=== PATIENT | male | born 1980 | race Two or more races ===

== ENCOUNTER 2024-03-21 21:45 | Emergency (ER) | payer MEDICAID, SELFPAY ==
[2024-03-21 21:45] VITALS: BMI 29.0
[2024-03-21 22:55] VITALS: BP 146/85; PULSE 89; RESP 17; TEMP 37.1; O2SAT 100
[2024-03-21] MEDS: IBUPROFEN TAB 400 MG TABLET 800 MG PO (23:20)
[2024-03-21] MEDS: METOCLOPRAMIDE 5 MG TABLET 10 MG PO (23:20)
--- NOTE | 2024-03-21 23:26 | EDNOTE_ITS ---
<Statement entered by Noelle Goldstein MD - 03/22/24 21:13> As co-signing physician, I was present and available for consult prn. I concur with the plan and care as documented by the midlevel provider. Upper Respiratory Inf. RME/HPI General Chief Complaint: Flu Like Symptoms Stated Complaint: FLU LIKE SYMPTOMS Time Seen by Provider: 03/21/24 23:10 Arrival date/time: 03/21/24 21:45 44M with no significant PMH presents to ED with 2 days of cough, ARENAS, sore throat, and body aches. Limitations: no limitations Related Data Previous Rx's ?Medication ?Instructions ?Recorded bacitracin 500 unit/gram topical 1 applic topical TID #144 ea 02/18/22 packet oxycodone-acetaminophen 10 mg-325 1 tab PO TID PRN pain #15 tabs 02/18/22 mg tablet (Percocet) ciprofloxacin HCl 500 mg tablet 500 mg PO BID #14 tabs 06/08/22 (Cipro) dicyclomine 10 mg capsule 10 mg PO BID #14 caps 06/08/22 metronidazole 500 mg tablet 500 mg PO BID #14 tabs 06/08/22 Allergies Allergy/AdvReac Type Severity Reaction Status Date / Time No Known Allergies Allergy Verified 03/21/24 21:47 Review of Systems Review of Systems Systems Reviewed: All systems reviewed, normal except as documented Constitutional Constitutional: Reports system reviewed and no additional complaints, except as documented, Reports as per HPI, Reports body ache(s), Denies fever(s) and Reports headache(s) ENT Ears, Nose, Mouth, and Throat: Reports as per HPI, Denies disequilibrium, Reports headache(s) and Reports sore throat Cardiovascular Cardiovascular: Reports system reviewed and no additional complaints, except as documented, Denies chest pain and Denies dyspnea Respiratory Respiratory: Reports system reviewed and no additional complaints, except as documented, Reports as per HPI, Reports cough and Denies dyspnea Gastrointestinal Gastrointestinal: Reports system reviewed and no additional complaints, except as documented, Denies abdominal pain, Denies nausea and Denies vomiting Neurologic Neurologic: Reports system reviewed and no additional complaints, except as documented, Denies confusion, Denies disequilibrium and Reports headache(s) Psychiatric Psychiatric: Denies confusion Past Medical History Social History SMOKING STATUS: Never smoker ED Exam General Limitations: Present no limitations General appearance: Present alert and in no apparent distress Head Head exam: Present atraumatic Eye Eye exam: Present normal appearance, PERRL and EOMI ENT ENT exam: Present mucous membranes moist Expanded ENT Exam Throat exam: Present tonsillar erythema and tonsillomegaly; Absent tonsillar exudate, R peritonsillar mass, L peritonsillar mass or muffled voice Neck Neck exam: Present normal inspection, full ROM and trachea midline Chest Chest inspection: Present normal inspection and symmetric chest wall rise Respiratory Respiratory exam: Present normal lung sounds bilaterally Cardiovascular Cardiovascular exam: Present regular rate, normal rhythm and normal heart sounds Abdominal Exam Abdominal exam: Present soft and normal bowel sounds Extremities Exam Extremities exam: Present normal inspection and full ROM Back Exam Back exam: Present normal inspection and full ROM Neurological Exam Neurological exam: Present alert, oriented X3 and CN II-XII intact Psychiatric Psychiatric exam: Present normal affect and normal mood Skin Skin exam: Present warm, dry, intact and normal color Course Quality Measures none Orders Category Date Time Status Bedside COVID-19 Antigen Test NOW Care 03/21/24 23:13 Active Bedside Influenza A&B Antigen Test NOW Care 03/21/24 23:13 Active Strep A Rapid Stat Lab 03/21/24 23:11 Ordered Ibuprofen Tab [Motrin Tab] Med 03/21/24 23:14 Discontinued 800 mg PO X1 ONE Metoclopramide [Reglan] Med 03/21/24 23:14 Discontinued 10 mg PO X1 ONE Vital Signs Vital signs: Vital Signs Temperature 98.7 F 03/21/24 22:55 Pulse Rate 89 03/21/24 22:55 Respiratory Rate 17 03/21/24 22:55 Blood Pressure 146/85 H 03/21/24 22:55 Pulse Oximetry (%) 100 03/21/24 22:55 Oxygen Delivery Method Room Air 03/21/24 22:55 O2 at 100% on RA and WNLs Upper Respiratory Infection MDM Narrative MDM Narrative:: 44M with no significant PMH presents to ED with 2 days of cough, ARENAS, sore throat, and body aches. Physical exam reveals nasal congestion, but clear lungs. Red and swollen oropharynx. Normal pupil response and EOM. No neck tenderness. ROM intact. Patient is afebrile, calm, and alert. Swabs neg. Patient refused strep swab. Patient data External records reviewed:: [facility] previous records Clinical information provided by:: patient Social determinants that could affect healthcare access:: none Patient has the following chronic illnesses:: none How is presenting disease/condition affected by chronic disease/condition?: no chronic disease Evaluation data The following diagnostics were reviewed and interpreted by me:: lab results Lab and/or radiology exams considered but not ordered:: ordered Interpretation Summary: above Medications / Prescriptions Medications or Prescriptions considered but not ordered:: ordered Medication administrations:: Medication Administration History Discontinued Medications Ibuprofen (Ibuprofen Tab 400 Mg Tablet) 800 mg PO X1 ONE Stop: 03/21/24 23:15 Last Admin: 03/21/24 23:20 Dose: 800 mg Documented By: OA Metoclopramide HCl (Metoclopramide 5 Mg Tablet) 10 mg PO X1 ONE Stop: 03/21/24 23:15 Last Admin: 03/21/24 23:20 Dose: 10 mg Documented By: MARLEEN above Consultations Consultation(s) initiated? (list below): No Diagnosis Upper Respiratory Differential Diagnosis: upper respiratory infection, croup, otitis media, sinusitis, viral infection, bronchitis, influenza and pharyngitis Most likely diagnosis given after review of the tests above:: URI Admission Indicated Admission indicated?: not indicated Admission Request Was there a request for admission?: No Disposition Plan Disposition Plan: Discharge Discharge Attestation Discharge Attestation: The patient and all family members were given an opportunity to ask questions and understood the discharge instructions. Discharge instructions specifically effects, indications for sooner follow up or return to the emergency department, and the expected course of current diagnosis. Patient condition: Stable Discharge Plan Plan Patient Disposition: HOME (Self Care) Disposition Comment: Stable Prescriptions/Referrals Prescriptions/Med Rec: No Action ciprofloxacin HCl [Cipro] 500 mg tablet 500 mg PO BID Qty: 14 0RF metronidazole 500 mg tablet 500 mg PO BID Qty: 14 0RF dicyclomine 10 mg capsule 10 mg PO BID Qty: 14 0RF bacitracin 500 unit/gram packet 1 applic topical TID Qty: 144 0RF oxycodone-acetaminophen [Percocet] 10-325 mg tablet 1 tab PO TID MDD 4 g APAP PRN (Reason: pain) Qty: 15 0RF Problem List Clinical Impression: Upper respiratory infection Patient/Caregiver Discharge Instructions Additional Instructions: Please follow-up with PCP within 24-48 hours and return immediately if symptoms worsen. Ibuprofen/Tylenol can be used simultaneously for greater fever/pain control. Jayl is good for cough, congestion, and sleep. Patient is negative for flu and COVID. Print Language: Indonesian Stand Alone Forms: Patient Portal Info Letter PA/ELEVATED MOTORMAN Supervising Physician PA/ELEVATED MOTORMAN Supervising Physician: Dr. Padilla
== END 2024-03-21 23:37 | disposition home or self-care (01) ==
LOC: SERX 03-22 00:52
PROVIDERS: Emergency Provider Emergency Medicine
DX: J06.9 Acute upper respiratory infection, unspecified (principal)
CPT/HCPCS: 87400; 87651; 87811; 99283; A9270

== ENCOUNTER 2025-01-25 00:50 | Emergency (ER) | payer MEDICAID, SELFPAY ==
[2025-01-25 00:51] VITALS: BMI 30.9
[2025-01-25 01:19] VITALS: BP 186/94; PULSE 91; RESP 18; TEMP 36.8; O2SAT 97
--- NOTE | 2025-01-25 01:34 | XR_ITS ---
EXAMINATION: Ultrasound venous Doppler left lower extremity Date and time: 2024, 0230 hours INDICATIONS: Left lower extremity swelling and pain today TECHNIQUE AND FINDINGS: Multiple sonographic Doppler images left lower extremity deep venous system including common femoral superficial femoral popliteal peroneal posterior tibial veins as well as superficial greater saphenous vein Venous system is patent, compressible with augmentation IMPRESSION: Negative for deep vein thrombosis
--- NOTE | 2025-01-25 01:34 | XR_ITS ---
EXAMINATION: Left lower extremity 2 views TECHNIQUE: AP lateral left tibia-fibula 2 views Date and time: January 25, 2025, 0135 hours INDICATIONS: Lower leg swelling and pain beginning yesterday no trauma FINDINGS: Adequate bone density. No fracture or dislocation. No cortical bone destruction or foreign body IMPRESSION: Negative for osseous abnormality
--- NOTE | 2025-01-25 01:35 | PD.EDRME ---
Rapid Medical Screening Exam RME Arrival date/time: 01/25/25 00:50 45-year-old male reports with complaints of sudden onset of redness pain and swelling left lower extremity that began today Chief Complaint: Extremity Problem,Nontraumatic Time Seen by Provider: 01/25/25 01:13 Vital signs: Vital Signs Temperature 98.2 F 01/25/25 01:19 Pulse Rate 91 01/25/25 01:19 Respiratory Rate 18 01/25/25 01:19 Blood Pressure 186/94 H 01/25/25 01:19 Pulse Oximetry (%) 97 01/25/25 01:19 Oxygen Delivery Method Room Air 01/25/25 01:19
[2025-01-25 04:20] VITALS: BP 165/95; PULSE 81; RESP 20; TEMP 36.7; O2SAT 99
--- NOTE | 2025-01-25 04:23 | PRELIM_ITS ---
Left lower extremity venous Doppler ultrasound with wave Doppler spectral analysis. January 25, 2025 at 0239 hours Clinical history: Swelling, redness and pain. Technique: Duplex scan of the left lower extremity deep venous systems was performed utilizing 2D grayscale imaging, Doppler spectral analysis and color flow Doppler and with compression. Comparison: None available at the time of this report. Findings: Monet scale, color flow and spectral Doppler evaluation of the left lower extremity deep veins was performed. The common femoral, superficial femoral and popliteal veins are patent and compressible. Normal respiratory variation is noted. There is no evidence of occlusive or nonocclusive thrombus. The great saphenous vein is patent and compressible at the level of the saphenofemoral junction. Impression: No sonographic evidence of deep venous thrombosis in the left lower extremity. Report Electronically Signed By: Sreekanth Hines 01/25/2025 4:22:48 AM [EST]
--- NOTE | 2025-01-25 05:07 | PD.EDEXREM ---
ED Extremity Problem RME/HPI General Chief complaint: Extremity Problem,Nontraumatic Stated complaint: LEFT PULLIAM SWELLING Time Seen by Provider: 01/25/25 01:13 Arrival date/time: 01/25/25 00:50 RME / HPI RME / HPI Narrative: 01/25/25 00:50 45-year-old male reports with complaints of sudden onset of redness pain and swelling left lower extremity that began today Dr. Michaels?s Main ED Evaluation: 45yo male with no significant past medical history presents to the ED for complaints of LLE redness, pain, and swelling x 1 day. No recent falls or injuries. Denies any fever, chills, cough, chest pain, shortness of breath, or any other associated symptoms. Patient is not taking any daily medications. NKA. Related Data Previous Rx's ?Medication ?Instructions ?Recorded bacitracin 500 unit/gram topical 1 applic topical TID #144 ea 02/18/22 packet oxycodone-acetaminophen 10 mg-325 1 tab PO TID PRN pain #15 tabs 02/18/22 mg tablet (Percocet) ciprofloxacin HCl 500 mg tablet 500 mg PO BID #14 tabs 06/08/22 (Cipro) dicyclomine 10 mg capsule 10 mg PO BID #14 caps 06/08/22 metronidazole 500 mg tablet 500 mg PO BID #14 tabs 06/08/22 cephalexin 500 mg capsule 500 mg PO TID #21 caps 01/25/25 Allergies Allergy/AdvReac Type Severity Reaction Status Date / Time No Known Allergies Allergy Verified 01/25/25 00:51 Review of Systems Review of Systems Systems Reviewed: All systems reviewed, normal except as documented Past Medical History Social History SMOKING STATUS: Current every day smoker ED Exam Narrative Physical exam: Generally patient is alert in no obvious distress, heart regular rate and rhythm, lungs clear to auscultation equal bilaterally, abdomen soft bowel sounds present also nontender, extremities show very mild erythema and warmth to the anterior pulliam region. No open wounds noted. No swelling to either lower extremity. Course Quality Measures none Orders Category Date Time Status US venous doppler LE LT Stat Exams 01/25/25 01:34 Taken XR tibia fibula LT 2V Stat Exams 01/25/25 01:34 Taken Vital Signs Vital signs: Vital Signs Temperature 98.2 F 01/25/25 01:19 Pulse Rate 91 01/25/25 01:19 Respiratory Rate 18 01/25/25 01:19 Blood Pressure 186/94 H 01/25/25 01:19 Pulse Oximetry (%) 97 01/25/25 01:19 Oxygen Delivery Method Room Air 01/25/25 01:19 Extremity Problem MDM Narrative MDM Narrative:: Scribe Attestation: 01/25/25 - Nimco Dorsey am scribing for and in the presence of Dr. Michaels. Doppler ultrasound to the left lower extremity showed no DVT. X-rays of the tibia and fibula were normal. Patient may have the beginnings of a very early cellulitis. Cephalexin as prescribed. Follow-up with his doctor. Return to ER as needed or if condition worsens. Elevate left leg is much as possible. Patient data External records reviewed:: [facility] previous records (Per chart review, patient was seen here on 03/21/24 for URI.) Clinical information provided by:: patient Social determinants that could affect healthcare access:: none Patient has the following chronic illnesses:: none How is presenting disease/condition affected by chronic disease/condition?: no chronic disease Evaluation data The following diagnostics were reviewed and interpreted by me:: radiology exam(s) Lab and/or radiology exams considered but not ordered:: none Interpretation Summary: Telerad Preliminary Report Draft Patient: GUERRERO APODACA Record#: [id number] Birthdate: 1980 Age/Sex: 45 / M Location: [facility] Attending Dr: Ordering Physician: Date of Service: Procedure(s): Accession Number(s): cc: ~ Left lower extremity venous Doppler ultrasound with wave Doppler spectral analysis. January 25, 2025 at 0239 hours Clinical history: Swelling, redness and pain. Technique: Duplex scan of the left lower extremity deep venous systems was performed utilizing 2D grayscale imaging, Doppler spectral analysis and color flow Doppler and with compression. Comparison: None available at the time of this report. Findings: Monet scale, color flow and spectral Doppler evaluation of the left lower extremity deep veins was performed. The common femoral, superficial femoral and popliteal veins are patent and compressible. Normal respiratory variation is noted. There is no evidence of occlusive or nonocclusive thrombus. The great saphenous vein is patent and compressible at the level of the saphenofemoral junction. Impression: No sonographic evidence of deep venous thrombosis in the left lower extremity. Report Electronically Signed By: Sreekanth Hines 01/25/2025 4:22:48 AM Medications / Prescriptions Medications or Prescriptions considered but not ordered:: none Medication administrations:: see above, if any Consultations Consultation(s) initiated? (list below): No Diagnosis Extremity Problem Differential Diagnosis: other (See MDM) Most likely diagnosis given after review of the tests above:: see clinical impression below Admission Indicated Admission indicated?: not indicated Admission Request Was there a request for admission?: No Disposition Plan Disposition Plan: Discharge Discharge Attestation Discharge Attestation: The patient and all family members were given an opportunity to ask questions and understood the discharge instructions. Discharge instructions specifically effects, indications for sooner follow up or return to the emergency department, and the expected course of current diagnosis. Patient condition: Stable Discharge Plan Plan Patient Disposition: HOME (Self Care) Prescriptions/Referrals Prescriptions/Med Rec: New cephalexin 500 mg capsule 500 mg PO TID Qty: 21 0RF No Action ciprofloxacin HCl [Cipro] 500 mg tablet 500 mg PO BID Qty: 14 0RF metronidazole 500 mg tablet 500 mg PO BID Qty: 14 0RF dicyclomine 10 mg capsule 10 mg PO BID Qty: 14 0RF bacitracin 500 unit/gram packet 1 applic topical TID Qty: 144 0RF oxycodone-acetaminophen [Percocet] 10-325 mg tablet 1 tab PO TID MDD 4 g APAP PRN (Reason: pain) Qty: 15 0RF Problem List Clinical Impression: Cellulitis Patient/Caregiver Discharge Instructions Education Materials: ED Cellulitis Additional Instructions: Take the antibiotic as prescribed. Elevate left leg is much as possible. Follow-up with your doctor as needed. Return to ER as needed or if condition worsens. You may use Tylenol and/or ibuprofen as needed for pain. Print Language: Mohawk Stand Alone Forms: [employer] Award Info., Patient Portal Info Letter
== END 2025-01-25 05:22 | disposition home or self-care (01) ==
LOC: SERX 06:17
PROVIDERS: Emergency Provider Emergency Medicine
DX: L03.116 Cellulitis of left lower limb (principal)
CPT/HCPCS: 73590; 93971; 99283

== ENCOUNTER 2025-03-12 05:39 | Emergency (ER) | payer MEDICAID, SELFPAY ==
[2025-03-12 05:40] VITALS: BMI 29.0
--- NOTE | 2025-03-12 05:41 | PD.EDRME ---
Rapid Medical Screening Exam RME Arrival date/time: 03/12/25 05:39 This is a case of 45-year-old male who came into the emergency room due to sore throat for 2 days no other symptoms noted Chief Complaint: Dental/Oral/Throat Exam: Patient is awake alert oriented not in distress nontoxic looking Clinical Impression: sorethroat
[2025-03-12 05:52] VITALS: BP 158/94; PULSE 86; RESP 18; TEMP 36.3; O2SAT 100
[2025-03-12 06:26] LABS: COVID-19 Antigen (In-House) Negative (Negative); Influenza A Ag Negative; Influenza B Ag Negative; Strep A Rapid Negative (Negative)
--- NOTE | 2025-03-12 07:13 | EDNOTE_ITS ---
<Statement entered by Noelle Goldstein MD - 03/12/25 17:17> As co-signing physician, I was present and available for consult prn. I concur with the plan and care as documented by the midlevel provider. ED Dental RME/HPI General Chief complaint: Dental/Oral/Throat Stated complaint: SORE THROAT FEVER Time Seen by Provider: 03/12/25 06:30 Source: patient Arrival date/time: 03/12/25 05:39 Mode of arrival: ambulatory Limitations: no limitations RME / HPI RME / HPI Narrative: 03/12/25 05:39 This is a case of 45-year-old male who came into the emergency room due to sore throat for 2 days no other symptoms noted Exam: Patient is awake alert oriented not in distress nontoxic looking Impression: sorethroat Related Data Previous Rx's ?Medication ?Instructions ?Recorded bacitracin 500 unit/gram topical 1 applic topical TID #144 ea 02/18/22 packet oxycodone-acetaminophen 10 mg-325 1 tab PO TID PRN michael n #15 tabs 02/18/22 mg tablet (Percocet) ciprofloxacin HCl 500 mg tablet 500 mg PO BID #14 tabs 06/08/22 (Cipro) dicyclomine 10 mg capsule 10 mg PO BID #14 caps metronidazole 500 mg tablet 500 mg PO BID #14 tabs cephalexin 500 mg capsule 500 mg PO TID #21 caps 01/25 Allergies Allergy/AdvReac Type Severity Reaction Status Date / Time No Known Allergies Allergy Verified 03/12/25 05:43 Review of Systems Review of Systems Systems Reviewed: All systems reviewed, normal except as documented Constitutional Constitutional: Reports system reviewed and no additional complaints, except as documented, Denies fatigue, Reports fever(s), Denies headache(s) and Denies weakness Eyes Eyes: Reports system reviewed and no additional complaints, except as documented, Denies blurry vision and Denies change in vision ENT Ears, Nose, Mouth, and Throat: Reports system reviewed and no additional complaints, except as documented, Denies otalgia, Denies headache(s), Denies nasal congestion, Reports sore throat, Denies throat swelling and Denies vertigo Cardiovascular Cardiovascular: Reports system reviewed and no additional complaints, except as documented, Denies chest pain, Denies dyspnea and Denies dyspnea on exertion Respiratory Respiratory: Reports system reviewed and no additional complaints, except as documented, Denies chest congestion, Denies cough, Denies dyspnea, Denies dyspnea on exertion and Denies wheezing Gastrointestinal Gastrointestinal: Reports system reviewed and no additional complaints, except as documented, Denies abdominal pain, Denies cramping, Denies nausea and Denies vomiting Genitourinary Genitourinary: Reports system reviewed and no additional complaints, except as documented, Denies dysuria and Denies hematuria Musculoskeletal Musculoskeletal: Reports system reviewed and no additional complaints, except as documented and Denies back pain Integumentary/Breasts Skin/Breast: Reports system reviewed and no additional complaints, except as documented and Denies wounds Neurologic Neurologic: Reports system reviewed and no additional complaints, except as documented, Denies confusion, Denies headache(s), Denies lack of coordination, Denies vertigo and Denies weakness Psychiatric Psychiatric: Reports system reviewed and no additional complaints, except as documented, Denies anxiety, Denies confusion, Denies depression, Denies par anoia, Denies suicidal ideation and Denies tactile hallucinations Endocrine Endocrine: Reports system reviewed and no additional complaints, except as documented and Denies fatigue Hematologic/Lymphatic Hematologic/Lymphatic: Reports system reviewed and no additional complaints, except as documented and Denies lymphadenopathy Allergic/Immunologic Allergic/Immunologic: Reports system reviewed and no additional complaints, except as documented, Denies throat swelling, Denies urticaria and Denies wheezing Past Medical History Social History SMOKING STATUS: Current every day smoker ED Exam General Limitations: Present no limitations General appearance: Present alert and in no apparent distress Head Head exam: Present atraumatic Eye Eye exam: Present normal appearance, PERRL and EOMI ENT ENT exam: Present normal exam, normal oropharynx and mucous membranes moist Expanded ENT Exam Throat exam: Present tonsillar erythema; Absent tonsillar exudate, R peritonsillar mass, L peritonsillar mass or muffled voice Neck Neck exam: Present normal inspection, full ROM and trachea midline Chest Chest inspection: Present normal inspection and symmetric chest wall rise Respiratory Respiratory exam: Present normal lung sounds bilaterally Cardiovascular Cardiovascular exam: Present regular rate, normal rhythm and normal heart sounds Abdominal Exam Abdominal exam: Present soft and normal bowel sounds Extremities Exam Extremities exam: Present normal inspection and full ROM Back Exam Back exam: Present normal inspection and full ROM Neurological Exam Neurological exam: Present alert, oriented X3 and CN II-XII intact Psychiatric Psychiatric exam: Present normal affect and normal mood Skin Skin exam: Present warm, dry, intact and normal color Course Quality Measures none Orders Category Date Time Status COVID-19 Antigen (In-House) Stat Lab 03/12/25 06:00 Completed FLU A&B [Influenza A & B Rapid Panel] Stat Lab 03/12/25 06:00 Completed [place] Screen Stat Lab 03/12/25 05:53 Received Strep A Rapid Stat Lab 03/12/25 06:00 Completed Vital Signs Vital signs: Vital Signs Temperature 97.4 F 03/12/25 05:52 Pulse Rate 86 03/12/25 05:52 Respiratory Rate 18 03/12/25 05:52 Blood Pressure 158/94 H 03/12/25 05:52 Pulse Oximetry (%) 100 03/12/25 05:52 Oxygen Delivery Method Room Air 03/12/25 05:52 Dental / Oral MDM Narrative MDM Narrative:: 45-year-old male with no known medical history presents to the emergency room with a chief complaint of a sore throat and fever x 2 days Patient is hemodynamically stable and in no apparent distress Patient's COVID influenza and strep test were all negative. On the patient was called back from my evaluation the patient had eloped prior to final disposition Patient data External records reviewed:: [facility] previous records Clinical information provided by:: patient Social determinants that could affect healthcare access:: none Patient has the following chronic illnesses:: No chronic illness How is presenting disease/condition affected by chronic disease/condition?: no chronic disease Evaluation data The following diagnostics were reviewed and interpreted by me:: lab results and radiology exam(s) Lab and/or radiology exams considered but not ordered:: Labs and radiology exams considered and ordered Interpretation Summary: N/A Medications / Prescriptions Medications or Prescriptions considered but not ordered:: No medication given Medication administrations:: No medication given Consultations Consultation(s) initiated? (list below): No Diagnosis Dental Differential Diagnosis: other (Pharyngitis/) Most likely diagnosis given after review of the tests above:: Upper respiratory infection Admission Indicated Admission indicated?: not indicated Admission Request Was there a request for admission?: No Disposition Plan Disposition Plan: Discharge Discharge Attestation Discharge Attestation: The patient and all family members were given an opportunity to ask questions and understood the discharge instructions. Discharge instructions specifically effects, indications for sooner follow up or return to the emergency department, and the expected course of current diagnosis. Patient condition: Stable Discharge Plan Plan Patient Disposition: Elopement Discharge Disposition comment: Stable Prescriptions/Referrals Prescriptions/Med Rec: No Action ciprofloxacin HCl [Cipro] 500 mg tablet 500 mg PO BID Qty: 14 0RF metronidazole 500 mg tablet 500 mg PO BID Qty: 14 0RF dicyclomine 10 mg capsule 10 mg PO BID Qty: 14 0RF cephalexin 500 mg capsule 500 mg PO TID Qty: 21 0RF bacitracin 500 unit/gram packet 1 applic topical TID Qty: 144 0RF oxycodone-acetaminophen [Percocet] 10-325 mg tablet 1 tab PO TID MDD 4 g APAP PRN (Reason: pain) Qty: 15 0RF Problem List Clinical Impression: Upper respiratory infection, viral Patient/Caregiver Discharge Instructions Print Language: Croatian
--- NOTE | 2025-03-12 07:23 | PC.NURSE ---
Registration called patient at this time no answer no patients outside
--- NOTE | 2025-03-12 07:52 | PC.NURSE ---
Patient called at this time no answer
--- NOTE | 2025-03-12 08:14 | PC.NURSE ---
Called patient at this time no answer
[2025-03-12 15:04] LABS: Mono Screen Negative (Negative)
== END 2025-03-12 08:18 | disposition left against medical advice (07) ==
LOC: SERX 08:17
PROVIDERS: Nurse Practitioner Family; Emergency Provider Emergency Medicine
DX: J06.9 Acute upper respiratory infection, unspecified (principal); F17.200 Nicotine dependence, unspecified, uncomplicated
CPT/HCPCS: 36415; 86308; 87502; 87651; 87811; 99281

== ENCOUNTER 2025-03-29 21:55 | Emergency (ER) | payer MEDICAID, SELFPAY ==
[2025-03-29 21:56] VITALS: BMI 30.9
--- NOTE | 2025-03-29 22:20 | PC.NURSE ---
PATIENT AND FAMILY MEMBER LEFT THE ED PRIOR TO BEING SEEN BY PROVIDER.
== END 2025-03-29 22:21 | disposition left against medical advice (07) ==
LOC: SERX 22:42
PROVIDERS: Emergency Provider Emergency Medicine
DX: Z53.21 Procedure and treatment not carried out due to patient leaving prior to being seen by health care provider (principal)
CPT/HCPCS: 99281